=== PATIENT | male | born 1955 | race Caucasian/White ===

== ENCOUNTER 2020-11-26 13:53 | Outpatient (CLI) | payer MEDICARE, OTHER ==
[2020-11-26 14:35] LABS: Bilirubin Neg (Negative); Blood, Urine Negative (Negative); Clarity Clear (Clear); Glucose, Urine (Dipstick) Normal (Negative); Ketone, Urine Negative (Negative); Leukocyte Negative (Negative); Nitrite Negative (Negative); Protein, Urine (Dipstick) Negative (Neg-Trace); Specific Gravity, Urine 1.015 (1.002-1.036); Urobilinogen Normal mg/dL (Less than 2)
[2020-11-26 14:42] LABS: Bacteria/HPF None Seen HPF (None Seen); RBC/HPF None Seen HPF (0-3); Squamous Epithelial None Seen HPF (0-3); WBC/HPF None Seen HPF (0-3)
[2020-11-26 15:34] LABS: #Eosinphils 0.1 10x3/uL (0.0-0.5); #Monocytes 0.5 10x3/uL (0.0-1.1); #Neutrophils 4.4 10x3/uL (1.5-8.4); %Basophils 0.5 % (0.0-2.0); %Eosinophils 1.2 % (0.0-6.0); %Lymphocytes 22.7 % (18.0-47.0); %Monocytes 8.2 % (0.0-10.0); %Neutrophils 66.9 % (40.0-75.0); Hemoglobin 14.8 g/dL (13.5-17.5); Mean Corpuscular HGB CONC 32.2 g/dL (32.0-36.0); Mean Corpuscular Hemoglobin 29.2 pg (27.0-33.0); Mean Corpuscular Volume 90.5 fl (81.2-95.1); Mean Platelet Volume 9.6 fl (7.4-10.4); Platelet Count 293 10x3/uL (150-450); RBC Distribution Width 12.2 % (11.5-14.5); Red Blood Cell (RBC) Count 5.07 10x6/uL (4.32-5.72); White Blood Cell (WBC) Count 6.6 10x3/uL (3.5-10.5)
[2020-11-26 15:40] LABS: Anion Gap 15 mmol/L (10-20); BUN (Urea Nitrogen) 20 mg/dL (8.4-25.7); Calc. Creatinine Clearance 0 mL/min (70-130); Calcium 9.8 mg/dL (7.8-10.44); Carbon Dioxide 28 mmol/L (23-31); Chloride 98 mmol/L (98-107); Glucose 89 mg/dL (80-115); Potassium 4.6 mmol/L (3.5-5.1); Sodium 136 mmol/L (136-145)
[2020-11-26 15:50] LABS: Prothrombin Time 10.3 sec (9.5-12.1)
[2020-11-27 00:56] LABS: SARS-CoV-2 PCR by NAA Not Detected (NotDetected)
== END 2020-11-26 13:54 | disposition home or self-care (01) ==
LOC: LABBT 13:53
PROVIDERS: ATTEND Orthopaedic Surgery
DX: Z01.818 Encounter for other preprocedural examination (principal); Z01.812 Encounter for preprocedural laboratory examination; M17.11 Unilateral primary osteoarthritis, right knee; Z20.822 Contact with and (suspected) exposure to COVID-19
CPT/HCPCS: 80048; 81001; 85025; 85610; 87081; 93005; U0003; U0005; 87635; 93010

== ENCOUNTER 2020-12-01 06:42 | Day surgery (SDC) | payer MEDICARE, OTHER ==
[2020-11-27 14:26] VITALS: BMI 23.7
[2020-12-01] MEDS ORDERED: Zolpidem Tartrate 5 MG TAB PO PRN ×2 (07:19→12:00)
[2020-12-01] MEDS ORDERED: diphenhydrAMINE 25 MG CAP PO PRN (07:19)
[2020-12-01] MEDS ORDERED: Fentanyl 100 MCG/2 ML VIAL SLOW IVP PRN ×2 (07:19→11:49)
[2020-12-01] MEDS ORDERED: Ondansetron PF 4 MG/2 ML Vial IVP PRN ×2 (07:19→12:00)
[2020-12-01] MEDS ORDERED: traMADol HCl 50 MG TAB PO PRN ×2 (07:19→12:00)
[2020-12-01] MEDS ORDERED: Acetaminophen 325 MG TAB PO PRN (07:19)
[2020-12-01] MEDS ORDERED: Promethazine HCl 25 MG/ML VIAL IM PRN ×3 (07:19→12:00)
[2020-12-01] MEDS ORDERED: HYDROcodone/Acetaminophen 10/325 mg Tablet PO PRN ×3 (07:19→12:00)
[2020-12-01] MEDS ORDERED: Tranexamic Acid 1,000 MG in Sodium Chloride 0.9% 100 ML IVPB SCH (07:30)
[2020-12-01] MEDS ORDERED: Tranexamic Acid 1,000 MG/10 ML VIAL ONE ×2 (07:40→11:21)
[2020-12-01] MEDS ORDERED: Vancomycin 1.5 GRAM/300 ML BAG ONE (07:40)
[2020-12-01] MEDS ORDERED: Sodium Chloride 0.9% 100 ML ONE (07:40)
[2020-12-01] MEDS ORDERED: Midazolam HCl 2 mg/2 ml Vial ONE (08:23)
[2020-12-01] MEDS ORDERED: Fentanyl 100 MCG/2 ML VIAL ONE ×4 (08:23→12:40)
[2020-12-01] MEDS ORDERED: Bupivacaine PF 0.5% 30 ML VIAL ONE ×2 (09:19→09:24)
[2020-12-01] MEDS ORDERED: Bupivacaine HCl 0.5%/Epinephrine 1:200,000/PF 30 ml Vial ONE (10:44)
[2020-12-01] MEDS ORDERED: Ropivacaine 2% HCl/PF (20 MG/10 ML VIAL) ONE (10:44)
[2020-12-01] MEDS ORDERED: PROPOFOL 200 MG/20 ML VIAL ONE (10:44)
[2020-12-01] MEDS ORDERED: Ondansetron PF 4 MG/2 ML Vial ONE (10:44)
[2020-12-01] MEDS ORDERED: ePHEDrine 50 MG/ML VIAL ONE (10:44)
[2020-12-01] MEDS ORDERED: Dexamethasone 20 MG/5 ML VIAL ONE (10:44)
[2020-12-01] MEDS ORDERED: PHENYLEPHRINE-NS 100 MCG/ML 10 ML SYRINGE ONE (10:44)
[2020-12-01] MEDS ORDERED: Lidocaine 1% PF 5 ML VIAL ONE (10:44)
[2020-12-01] MEDS ORDERED: Ondansetron HCl/PF 4 MG/2 ML Vial IVP PRN (11:38)
[2020-12-01] MEDS ORDERED: Ketorolac Tromethamine 30 MG/ML VIAL ONE (11:38)
[2020-12-01] MEDS ORDERED: Promethazine HCl 25 MG/ML VIAL SLOW IVP PRN (11:38)
[2020-12-01] MEDS ORDERED: Ropivacaine HCl/PF 250 ML in Premix Bag 1 BAG NERVE BLCK SCH (12:00)
[2020-12-01] MEDS ORDERED: Ketorolac Tromethamine 30 MG/ML VIAL IVP SCH (14:00)
[2020-12-01] MEDS: Ketorolac Tromethamine 30 MG/ML VIAL IVP SCH ×2 (15:22→18:25)
[2020-12-01] MEDS: Sodium Chloride 0.9% 1,000 ML IV SCH ×2 (15:22→17:51)
[2020-12-01] MEDS: Aspirin 81 mg Enteric Coated Tablet PO SCH ×2 (15:22→21:24)
[2020-12-01] MEDS: Calcium Carbonate 600 MG TAB PO SCH ×2 (15:22→21:24)
[2020-12-01] MEDS ORDERED: CEFAZOLIN 2 GM in Premix Bag 1 BAG IVPB SCH (16:00)
[2020-12-01] MEDS: CEFAZOLIN 2 GM in Premix Bag 1 BAG IVPB SCH (18:24)
[2020-12-01] MEDS ORDERED: Vancomycin 1 GM in Premix Bag 1 BAG IVPB SCH (20:00)
[2020-12-01] MEDS: diphenhydrAMINE 25 MG CAP PO SCH (21:24)
[2020-12-01] MEDS: ALPRAZolam 0.5 MG TAB PO SCH (21:24)
[2020-12-01] MEDS: Escitalopram Oxalate 20 mg Tablet PO SCH (21:24)
[2020-12-01] MEDS: Simvastatin 10 MG TAB PO SCH (21:24)
[2020-12-01] MEDS: Lisinopril 2.5 MG TAB PO SCH (21:24)
[2020-12-02] MEDS: Ketorolac Tromethamine 30 MG/ML VIAL IVP SCH ×5 (01:08→23:13)
[2020-12-02] MEDS: CEFAZOLIN 2 GM in Premix Bag 1 BAG IVPB SCH (01:08)
[2020-12-02] MEDS: Sodium Chloride 0.9% 1,000 ML IV SCH ×3 (03:40→23:12)
[2020-12-02 06:11] LABS: Hemoglobin 12.1 g/dL (14.0-18.0); Mean Corpuscular HGB CONC 31.5 g/dL (32.0-36.0); Mean Corpuscular Hemoglobin 29.3 pg (27.0-31.0); Mean Platelet Volume 7.2 fL (7.4-10.4); Platelet Count 230 thou/uL (130-400); RBC Distribution Width 11.3 % (11.5-14.5); Red Blood Cell (RBC) Count 4.12 mill/uL (4.70-6.10); White Blood Cell (WBC) Count 7.8 thou/uL (4.8-10.8)
[2020-12-02] MEDS: Multivitamin W/ Minerals 1 TAB PO SCH (08:25)
[2020-12-02] MEDS: Ferrous Gluconate 324 MG TAB PO SCH ×2 (08:25→17:47)
[2020-12-02] MEDS: Senokot S 8.6-50 MG TAB PO SCH ×2 (08:25→20:55)
[2020-12-02] MEDS: Calcium Carbonate 600 MG TAB PO SCH ×2 (08:26→20:55)
[2020-12-02] MEDS: Aspirin 81 mg Enteric Coated Tablet PO SCH ×2 (08:26→20:55)
[2020-12-02] MEDS: traMADol HCl 50 MG TAB PO PRN (16:21)
[2020-12-02] MEDS: ALPRAZolam 0.5 MG TAB PO SCH (20:54)
[2020-12-02] MEDS: diphenhydrAMINE 25 MG CAP PO SCH (20:55)
[2020-12-02] MEDS: Simvastatin 10 MG TAB PO SCH (20:55)
[2020-12-02] MEDS: Lisinopril 2.5 MG TAB PO SCH (20:55)
[2020-12-02] MEDS: Escitalopram Oxalate 20 mg Tablet PO SCH (20:55)
[2020-12-02] MEDS: HYDROcodone/Acetaminophen 10/325 mg Tablet PO PRN (20:55)
[2020-12-03 05:13] LABS: Hemoglobin 11.6 g/dL (14.0-18.0); Mean Corpuscular HGB CONC 31.8 g/dL (32.0-36.0); Mean Corpuscular Hemoglobin 29.7 pg (27.0-31.0); Mean Corpuscular Volume 93.2 fL (78.0-98.0); Mean Platelet Volume 7.2 fL (7.4-10.4); Platelet Count 200 thou/uL (130-400); RBC Distribution Width 11.3 % (11.5-14.5); Red Blood Cell (RBC) Count 3.92 mill/uL (4.70-6.10); White Blood Cell (WBC) Count 9.4 thou/uL (4.8-10.8)
[2020-12-03] MEDS: Ketorolac Tromethamine 30 MG/ML VIAL IVP SCH (05:22)
[2020-12-03] MEDS: HYDROcodone/Acetaminophen 10/325 mg Tablet PO PRN ×2 (05:22→14:27)
[2020-12-03] MEDS: Aspirin 81 mg Enteric Coated Tablet PO SCH (08:37)
[2020-12-03] MEDS: Ferrous Gluconate 324 MG TAB PO SCH (08:37)
[2020-12-03] MEDS: Multivitamin W/ Minerals 1 TAB PO SCH (08:37)
[2020-12-03] MEDS: Calcium Carbonate 600 MG TAB PO SCH (08:37)
[2020-12-03] MEDS: Senokot S 8.6-50 MG TAB PO SCH (08:38)
[2020-12-03] MEDS ORDERED: Calcium Carbonate 500 MG ChewTAB PO PRN (08:46)
[2020-12-03] MEDS: Sodium Chloride 0.9% 1,000 ML IV SCH (09:30)
[2020-12-03] MEDS: traMADol HCl 50 MG TAB PO PRN (10:41)
[2020-12-03 11:25] VITALS: BP 142/78; TEMP 99
== END 2020-12-03 14:40 | disposition home or self-care (01) ==
LOC: SDC 06:42 → SJJU 07:19 → SDC 12-03 14:40
PROVIDERS: ATTEND Orthopaedic Surgery
PROC: 0SRC0J9 Replacement of Right Knee Joint with Synthetic Substitute, Cemented, Open Approach (ICD-10-PCS; principal; 2020-12-01)
PROC: 8E0YXBZ Computer Assisted Procedure of Lower Extremity (ICD-10-PCS; 2020-12-01)
DX: M17.11 Unilateral primary osteoarthritis, right knee (principal); I10 Essential (primary) hypertension; E78.5 Hyperlipidemia, unspecified; F41.9 Anxiety disorder, unspecified; Z79.899 Other long term (current) drug therapy; Z96.652 Presence of left artificial knee joint
CPT/HCPCS: 20985; 27447; 85027; 97110 ×3; 97116 ×3; 97139 ×2; 97530 ×2; C1713; C1776; 36415; J0690; J1100; J1885; J2250; J2405; J2704; J2795; J3010; J3370; J3490; Q0163; S0020